=== PATIENT | female | born 1960 | race Caucasian/White ===

== ENCOUNTER → 2017-01-21 | Emergency (ER) | payer OTHER ==
[~2017-01-21] VITALS: Ht 172.7 cm; Wt 109.1 kg
[~2017-01-21] MED LIST: ALBU8.5H2 INHALATION; ALPR0.254 PO; CYCL10TA9 PO; HYDR-4003 PO; LEVO100T6 PO; LIDO700A10 TP; OMEP20CA11 PO; RIVA20TA PO; VENL75CA95
[2017-01-21 18:15] VITALS: BP 154/85; PULSE 103; RESP 20; O2SAT 97
--- NOTE | 2017-01-21 18:45 | DRSVH ---
PROCEDURE: X-RAY CHEST, TWO VIEWS ([id number]) INDICATIONS: chest pain TECHNIQUE: 2 views of the chest were acquired. COMPARISON: [facility], CR, XR CHEST 1VW (PORTABLE), 12/09/2015, 11:04. FINDINGS: Surgical changes and devices: None. Lungs and pleura: No pleural effusions or pneumothorax. Lungs are clear. Mediastinum: Mediastinal contours are normal. Heart size is normal. Bones and chest wall: No suspicious bony abnormalities. Soft tissues appear unremarkable. IMPRESSION: No source of chest pain found. Asymmetric right greater than left osteoarthritis at the first costosternal junction. Again noted is a set of 2 adjacent left glenoid labrum area orthopedic alyssia. Dictated by: Sal Lino M.D. on 01/21/2017 at 18:43 Approved by: Sal Lino M.D. on 01/21/2017 at 18:44
[2017-01-21 19:00] LABS: BASOPHILS % (AUTO) 0.2 % (0-3); EOSINOPHILS % (AUTO) 0.4 % (0-5); Mean Corpuscular Hemoglobin 31.3 pg (27.0-35.0); Mean Corpuscular Volume 92.9 fL (81-100); NEUTROPHILS % (AUTO) 74.4 % (40-74); Platelet Count 217 bil/L (150-400)
[2017-01-21 19:44] LABS: TROPONIN T < 0.010 ug/L (0.0-0.011)
[2017-01-21 19:53] LABS: Magnesium 1.9 mg/dL (1.6-2.6)
--- NOTE | 2017-01-21 20:00 | ED.REPORT ---
HPI-General Illness Date of Service Jan 21, 2017 ED Provider: Demetri Caban MD The patient is a 56 year old female with a hx of edema, PVC, GERD, UTI, arthritis, endometriosis, depression, and thyroid disease presenting to the ED complaining of left-sided chest pain onset earlier today while she was driving. She describes the pain as tight, moderate in severity, and localized under her left breast. She denies and exacerbation or relieving factors. She claims the pain lasted for about 15 minutes, but resolved on its own. She denies fever, chills, nausea, vomiting, vision loss, headache, back pain, or hematuria. Nursing Notes Stated Complaint: CHEST PAIN Chief Complaint: Chest Pain Nursing Notes Reviewed: Yes Allergies: Coded Allergies: Penicillins (Verified Allergy, Unknown, 01/21/17) Scheduled Levothyroxine (Levothyroxine) 100 Mcg Tablet 100 MCG PO DAILY Omeprazole (Omeprazole) 20 Mg Capsule.dr 20 MG PO DAILY Rivaroxaban (Xarelto) 20 Mg Tablet 20 MG PO DAILY 15 mg twice daily x 21 days then 20 mg daily. Scheduled PRN Albuterol HFA (Proair HFA) 8.5 Gm Hfa.aer.ad 2 PUFFS INHALATION q4 hours PRN PRN For Shortness of Breath Alprazolam (Alprazolam) 0.25 Mg Tablet 0.25 MG PO BID PRN PRN For Anxiety Cyclobenzaprine (Cyclobenzaprine) 10 Mg Tablet 5-10 MG PO HS PRN PRN For Pain Hydrocodone-Acetaminophen 5-325 mg (Hydrocodone-Acetaminophen 5-325 mg) 1 Each Tablet 1 TABLET PO q8 hours PRN PRN For Pain Lidocaine (Lidoderm) 700 Mg Adh..patch 1 PATCH TP DAILY PRN PRN For Pain Miscellaneous Medications Venlafaxine ER (Venlafaxine ER) 75 Mg Cap.er.24h General Time Seen by MD: 19:50 Chief Complaint Chest pain Hx Obtained From: Patient Arrived By: Walk-in Sudden in Onset?: Yes Onset Occurred: 1 - 4 hours ago Context of Onset: Other (while driving) Symptom Duration: 1 - 15 minutes Location: : Chest (left sided) Quality: Painful Radiation: : Does not radiate Severity: Current: Moderate Severity: Maximum: Moderate Associated with: Denies: Fever, Nausea, Shortness of breath, Vomiting Pertinent Negative: Pt denies other symptoms Pertinent Negative: Exacerbated by nothing, Relieved by nothing Recent Healthcare: No recent hospitalization, Recent doctor visit Similar Sx Previous: Yes Past Medical History Past Medical History 1. Hypothyroidism 2. Anxiety 3. PE 4. Depression 5. DVT, PE 6. Chronic pain requiring narcotic analgesics 7. PTSD 8. COPD Past Surgical History 1. Cholecystectomy Family History Mother from PE age 51 Uncle (mothers brother) history of PE Smoking History Former Smoker Social History Alcohol Use: Denies alcohol use Drug Use: Denies drug use Ambulatory Status Independent Review of Systems Full Review of Systems Constitutional: Denies: Chills, Fever Eyes: Denies: Visual loss bilateral Respiratory: Denies: Shortness of breath Cardiovascular: Reports: Chest pain (left sided) GI: Denies: Abdominal pain, Bloody/tarry stool, Hematochezia, Nausea, Vomiting Female: Denies: Hematuria Musculoskeletal: Denies: Back pain Skin: Denies Diaphoresis Neurologic: Denies: Headache, Weakness Complete sys rev & neg: except as marked. Physical Exam Nursing note and vitals reviewed. Constitutional: Well-developed, well-nourished. Not diaphoretic. Head: Normocephalic and atraumatic. Mouth/Throat: Oropharynx is clear and moist. No oropharyngeal exudate. Eyes: EOM are normal. Pupils are equal, round, and reactive to light. Neck: Supple, no tracheal deviation. Cardiovascular: Normal rate, regular rhythm. Equal and intact distal pulses throughout. Pulmonary/Chest: Effort normal and breath sounds normal. No respiratory distress. Abdominal: Soft. No distension. There is no tenderness, rebound, or guarding. Bowel sounds present. Musculoskeletal: Range of motion grossly intact, moving all extremities. No edema or tenderness appreciated. Neurological: AOx3. Grossly nonfocal exam. Strength and sensation intact and equal to bilateral upper and lower extremities. Skin: Warm and dry, no rashes or pallor appreciated. Psychiatric: Appropriate mood and affect. Behavior appears normal. Vital Signs Vital Signs Date Time Temp Pulse Resp B/P Pulse Ox O2 Delivery O2 Flow Rate FiO2 01/21/17 23:09 76 25 135/89 96 Room Air 01/21/17 21:00 79 20 117/65 96 Room Air 01/21/17 20:04 83 20 115/55 96 Room Air 01/21/17 18:15 36.8 103 20 154/85 97 Room Air Initial VS: Reviewed Interpretation & Diagnostics Lab Results Interpretation Result Diagram: 01/21/17 1843 01/21/17 1843 Test 01/21/17 18:43 01/21/17 21:15 White Blood Count 10.0th/mm3 (3.8-10.1) Red Blood Count 4.96mil/mm3 (3.90-5.20) Hemoglobin 15.5g/dL (12.0-15.6) Hematocrit 46.1% (35.0-46.0) Mean Corpuscular Volume 92.9fL (81-100) Mean Corpuscular Hemoglobin 31.3pg (27.0-35.0) Mean Corpuscular Hemoglobin Concent 33.6% (32.0-37.0) Red Cell Distribution Width 12.8% (12.3-15.4) Platelet Count 217bil/L (150-400) Neutrophils (%) (Auto) 74.4% (40-74) Lymphocytes (%) (Auto) 18.9% (14-46) Monocytes (%) (Auto) 6.0% (4-12) Eosinophils (%) (Auto) 0.4% (0-5) Basophils (%) (Auto) 0.2% (0-3) Sodium Level 142mEq/L (134-144) Potassium Level 4.3mEq/L (3.5-5.2) Chloride Level 102mEq/L (97-108) Carbon Dioxide Level 23mmol/L (18-29) Blood Urea Nitrogen 14mg/dL (6-24) Creatinine 0.94mg/dL (0.57-1.00) Estimat Glomerular Filtration Rate 88mL/min (>59) Glucose Level 123mg/dL (60-99) Calcium Level 9.6mg/dL (8.5-10.1) Magnesium Level 1.9mg/dL (1.6-2.6) Total Bilirubin 0.6mg/dL (0.0-1.2) Aspartate Amino Transf (AST/SGOT) 41U/L (0-50) Alanine Aminotransferase (ALT/SGPT) 70U/L (0-32) Alkaline Phosphatase 113U/L (25-150) Troponin T < 0.010ug/L (0.0-0.011) Total Protein 8.0g/dL (6.4-8.4) Albumin 4.7g/dL (3.4-5.0) Hold Tellez Top Tube Received (Received) Hold Urine Received (Received) Lab Results Interpretation: LABS: CBC normal CMP normal except AMP 70 Troponin negative Rest within normal limits VITALS: Moderately tachycardic on arrival, relieved on its own ECG Interpretation Time: 18:25 Interpreted by: ED physician Normal ECG Interpretation: Normal ECG w/ rate of... (92), Normal sinus rhythm, No change from prior ECGs X-Ray Chest Interpretation Chest Xray Interpretation: IMPRESSION: No source of chest pain found. Asymmetric right greater than left osteoarthritis at the first costosternal junction. Again noted is a set of 2 adjacent left glenoid labrum area orthopedic alyssia. Dictated by: Sal Lino M.D. on 01/21/2017 at 18:43 View: AP & lat Interpretation / Wet Read by: Interpret - Radiologist CT Chest Interpretation IMPRESSION: No pulmonary emboli. A few small blebs in posterior right lower lobe. Lungs otherwise clear. Small sliding type hiatal hernia. This report was transmitted to the emergency room at 01/21/2017 - 10:49:22 PM PDT. Interpretation / Wet Read by: Interpret - Radiologist Re-Eval/Medical Decision Med Decision/Clinical Course EK Sinus rhythm normal Rate 92 No significant changes from previous. Chest X-Ray 2VW: IMPRESSION: No source of chest pain found. Asymmetric right greater than left osteoarthritis at the first costosternal junction. Again noted is a set of 2 adjacent left glenoid labrum area orthopedic alyssia. LABS: CBC normal CMP normal except AMP 70 Troponin negative Rest within normal limits VITALS: Moderately tachycardic on arrival, relieved on its own CT PULMONARY ANGIOGRAM: IMPRESSION: No pulmonary emboli. A few small blebs in posterior right lower lobe. Lungs otherwise clear. Small sliding type hiatal hernia. Time of Eval: 22:50 Re-Evaluation/Progress Note: Patient rechecked. Discussed plan for discharge. Counseled Regarding: Diagnosis, Lab results, Need for follow-up, When/why to return to ED Discharge & Departure Primary Impression: Chest pain Chest pain type: unspecified Qualified Code: R07.9 - Chest pain, unspecified Disposition: Home Discharge Condition All VS Reviewed: Yes Condition: Stable Patient Instructions: Chest Pain (ED) Additional Instructions: Thank you for allowing us to be a part of your care in the ED today. Your emergency department results, including a chest x-ray and blood work, are reassuring. I do not think that there is an emergent cause for your symptoms today that would require admission to the hospital. Please schedule a follow up appointment with your primary care physician tomorrow for a recheck. Please return to the emergency department for any new or worsening symptoms including any nausea, vomiting, abdominal pain, shortness of breath, chest pain , one sided weakness/numbness, fevers, or chills, or if there's anything else of concern to you. Referrals: Lauren Johnson DO (PCP) Scribe Attestation Portions of this note were transcribed by Telly Riggins. I, Dr. Caban personally performed the history, physical exam and medical decision-making; I reviewed and confirmed the accuracy of the information in the transcribed note. Signed by: Catalina Glover, 01/21/2017 copies to: Lauren Johnson William B MD Jan 21, 2017 20:00 Jan 21, 2017 20:11
[2017-01-21 20:04] VITALS: BP 115/55; PULSE 83; RESP 20; O2SAT 96
[2017-01-21 21:00] VITALS: BP 117/65; PULSE 79; RESP 20; O2SAT 96
[2017-01-21 23:09] VITALS: BP 135/89; PULSE 76; RESP 25; O2SAT 96
--- NOTE | 2017-01-22 10:10 | DRSVH ---
PROCEDURE: CT ANGIO CHEST PULMONARY EMBOLISM ([id number]) INDICATIONS: 56 year-old female with left chest pain and history of pulmonary embolism. TECHNIQUE: After the administration of intravenous contrast, 2 mm thick sections acquired from the pulmonary api jie to the posterior costophrenic angles. 3-dimensional maximum intensity projection (MIP) coronal a nd sagittal reformats were then acquired through the thorax. For radiation dose reduction, the follo wing was used: automated exposure control, adjustment of mA and/or kV according to patient size. COMPARISON: [facility], CT, CT ANGIO CHEST PE, 11/02/2016, 17:49. [facility] , CT, CT ANGIO CHEST PE, 12/09/2015, 11:58. [facility], CT, CT ANGIO CHEST PE, 04/27/2015, 15:33. FINDINGS: Preliminary interpretation rendered by [facility]. Image quality: Excellent. Pulmonary arteries: Pulmonary arteries are normal in size, and demonstrate no intraluminal filling d efects to suggest central pulmonary embolism. Lungs and pleura: Lungs are clear. No pleural effusions or pneumothorax. Central and peripheral ai rways are patent. Mediastinum: Heart size is normal, without pericardial effusion. No mediastinal or hilar adenopathy . Solitary calcified lymph node lies adjacent to the right mainstem bronchus, consistent with remote granulomatous disease. Thoracic aorta is normal in caliber and enhancement. Esophagus is normal in caliber, without hiatal hernia. Bones and chest wall: No suspicious bony lesions. Ribs and thoracic spine appear intact throughout. Thyroid gland is normal in size. No axillary or supraclavicular adenopathy. Abdomen: Visualized upper abdominal solid organs appear normal in the early arterial phase of enhanc ement, status postcholecystectomy. IMPRESSION: 1. No evidence for central pulmonary embolism. 2. No acute pulmonary disease. Mediastinal remote granulomatous disease. No significant discrepancy with preliminary [facility] report. Dictated by: Edwin Dangelo M.D. on 01/22/2017 at 6:00 Approved by: Edwin Dangelo M.D. on 01/22/2017 at 6:08
== END | disposition home or self-care (01) ==
LOC: SED 18:13
DX: R07.9 Chest pain, unspecified (principal); J44.9 Chronic obstructive pulmonary disease, unspecified; F41.8 Other specified anxiety disorders; E03.9 Hypothyroidism, unspecified; K21.9 Gastro-esophageal reflux disease without esophagitis; Z87.440 Personal history of urinary (tract) infections; Z90.49 Acquired absence of other specified parts of digestive tract; Z87.891 Personal history of nicotine dependence; Z88.0 Allergy status to penicillin